=== PATIENT | female | born 1985 | race Two or more races ===

== ENCOUNTER → 2024-03-20 | Outpatient (CLI) | payer BC, SELFPAY ==
--- NOTE | 2024-03-20 10:14 | XR_ITS ---
Examination: Foot bilateral, 6 views Technique: AP, oblique, lateral views each foot total 6 views Date and time of exam: March 20, 2024 1027 hours INDICATIONS: Bilateral foot pain months FINDINGS: Mild osteopenia Mild to moderate bilateral hallux valgus bunion deformities Mild bilateral narrowing first metatarsophalangeal joints No fracture or dislocation involving either foot No cortical bone erosions IMPRESSION: Mild to moderate bilateral hallux valgus bunion deformities Mild bilateral narrowing first metatarsophalangeal joints
[2024-03-20 11:22] LABS: Basophils % (Auto) 0 % (0-2.5); Eosinophils # (Auto) 0.2 Thou/mm3 (0.0-0.5); Eosinophils % (Auto) 4 % (0-10); Hemoglobin 14.6 g/dL (12.0-16.0); Immature Granulocytes % (Auto) 0 % (0-0); Immature Granulocytes Auto 0.01 Thou/mm3 (0.00-0.00); Lymphocytes % (Auto) 35 % (10-50); Mean Corpuscular HGB Conc 33.2 g/dl (31.0-37.0); Mean Corpuscular Hemoglobin 28.6 pg (25.0-35.0); Mean Corpuscular Volume 86 fL (80-100); Monocytes # (Auto) 0.4 Thou/mm3 (0.0-0.8); Monocytes % (Auto) 7 % (0-12); Neutrophils # (Auto) 3.1 Thou/mm3 (1.8-7.7); Neutrophils % (Auto) 54 % (37-80); Nucleated Red Blood Cell % 0 /100 WBC (0); Platelet Count 280 Thou/mm3 (140-440); RDW Standard Deviation 41.2 fL (36.4-46.3); White Blood Count 5.7 Thou/mm3 (3.6-11.0)
[2024-03-20 11:36] LABS: Glucose Estimated Average 105 mg/dL (80-131); Hemoglobin A1C 5.3 % Hgb (4.8-6.0)
[2024-03-20 11:44] LABS: Collection Type, Urine Clean Catch
[2024-03-20 11:49] LABS: Alanine Aminotransferase 18 U/L (10-49); Albumin, Serum 4.6 gm/dL (3.5-5.0); Albumin/Globulin Ratio 2.1 (1.2-2.2); Alkaline Phosphatase 65 U/L (46-116); Anion Gap 6 (7-16); Aspartate Amino Transferase 13 U/L (0-34); BUN/Creatinine Ratio 19 Ratio (12-20); Bilirubin,Total 1.2 mg/dL (0.3-1.2); Blood Urea Nitrogen 13 mg/dL (9-23); Calcium 9.7 mg/dL (8.3-10.6); Calcium (Corrected) 9.7 mg/dL (8.5-10.1); Carbon Dioxide 28.7 mMol/L (20.0-31.0); Cardiac Risk Estimate 3.9 RATIO (3.7-5.6); Chloride 104 mMol/L (98-107); Cholesterol 149 mg/dL (132-200); Creatinine (Component) 0.7 mg/dL (0.6-1.3); Globulin 2.2 gm/dL (2.3-3.5); Glucose 86 mg/dL (74-106); HDL Cholesterol 38 mg/dL (40-60); LDL Cholesterol,Calculated 83 mg/dL (0-130); Osmolality,Calculated 276 (275-295); Potassium 4.3 mMol/L (3.4-5.1); Sodium 139 mMol/L (136-145); Thyroid Stimulating Hormone 0.65 uIU/mL (0.55-4.78); Total Protein 6.8 gm/dL (5.7-8.2); Triglycerides 138 mg/dL (30-150); eGFR > 60 See Note
[2024-03-20 11:55] LABS: Vitamin D 25 Hydroxy Total 23.9 ng/mL (7.3-40.2)
[2024-03-20 12:09] LABS: Bilirubin,Urine Negative (Negative); Blood,Urine Negative (Negative); Clarity,Urine Hazy (Clear/Hazy); Color,Urine Yellow (Lt Yel-Yel); Culture Indicated,Urine Not Indicated; Glucose, Urine Negative (Negative); Ketones,Urine Negative (Negative); Leukocyte Esterase,Urine Negative (Negative); Nitrite,Urine Negative (Negative); PH,Urine 7.5 (5.0-7.0); Protein,Urine 1+ (Neg - Trace); RBC,Urine 8 /hpf (0-3); Specific Gravity,Urine 1.027 (1.001-1.035); Squamous Epithelial Cell,Urine 67 /hpf (0-5); Urobilinogen,Urine Negative mg/dL (0.0-1.0); WBC,Urine 2 /hpf (0-5)
[2024-03-20 12:22] LABS: Creatinine MALB Rnd Ur 232 mg/dL (30-125); Microalbumin Creat Ratio 2 mg/gCrea (<30); Microalbumin, Random Urine 4 mg/L (0-300)
== END | disposition home or self-care (01) ==
LOC: COPL 10:03
PROVIDERS: PCP Family Medicine; Referring Provider Family Medicine; Visit Provider Radiology Diagnostic Radiology
DX: M20.12 Hallux valgus (acquired), left foot (principal); M20.11 Hallux valgus (acquired), right foot; M21.612 Bunion of left foot; M21.611 Bunion of right foot; M25.872 Other specified joint disorders, left ankle and foot; M25.871 Other specified joint disorders, right ankle and foot; Z00.00 Encounter for general adult medical examination without abnormal findings; Z13.0 Encounter for screening for diseases of the blood and blood-forming organs and certain disorders involving the immune mechanism; Z13.29 Encounter for screening for other suspected endocrine disorder; Z13.21 Encounter for screening for nutritional disorder; Z13.220 Encounter for screening for lipoid disorders
CPT/HCPCS: 36415; 73630; 80053; 80061; 81001; 82043; 82306; 82570; 83036; 84443; 85025

== ENCOUNTER → 2024-04-16 | Outpatient (CLI) | payer BC, SELFPAY ==
--- NOTE | 2024-04-16 10:30 | XR_ITS ---
Examination: Screening digital mammography, bilateral Computer aided detection 3-D breast Tomosynthesis, bilateral Date and time of exam: April 16, 2024 1025 hrs. Compared to mammograms dating to 11/25/2018 Indication: Screening Technique: Nonmagnified MLO, CC views of the breasts to been obtained, reconstructed from 3-D Tomosynthesis images. R2 computer aided detection program utilized for evaluation of suspicious masses and/or abnormal calcifications. 3-D Tomosynthesis images obtained. Findings: The breasts are heterogeneously dense, which may obscure small masses 2 focal asymmetries upper outer left breast, each 16 mm Impression: BI-RADS Category 0: Incomplete: Need additional imaging evaluation 2 focal asymmetries upper outer left breast, recommend follow-up spot tomographic views upper outer quadrant left breast, left breast sonography to complete the workup
== END | disposition home or self-care (01) ==
PROVIDERS: PCP Family Medicine; Referring Provider Family Medicine; Visit Provider Family Medicine
DX: Z12.31 Encounter for screening mammogram for malignant neoplasm of breast (principal); N64.89 Other specified disorders of breast
CPT/HCPCS: 77063; 77067

== ENCOUNTER → 2024-05-20 | Outpatient (CLI) | payer BC, SELFPAY ==
--- NOTE | 2024-05-20 14:00 | XR_ITS ---
Examination: Breast ultrasound, unilateral, left complete Date and time of exam: May 20, 2024 1325 hours INDICATIONS: Mammogram April 16, 2024 2 focal asymmetries upper outer left breast, family history breast cancer Technique: Real-time phelps scale ultrasonographic imaging performed left breast including all 4 quadrants as well as nipple retroareolar and axillary region. Findings: 1:00 cyst 8 x 8 mm No solid nodules IMPRESSION: BI-RADS Category 2: Benign findings
--- NOTE | 2024-05-20 14:45 | XR_ITS ---
Examination: Diagnostic digital mammography, unilateral, left Computer aided detection 3-D breast Tomosynthesis, unilateral Date and time of exam: May 20, 2024 at 1410 hours INDICATIONS: Mammogram April 16, 2024 2 focal asymmetries upper outer left breast Technique: Nonmagnified MLO, CC views of the left breast have been obtained, reconstructed from 3-D Tomosynthesis images. R2 computer aided detection program utilized for evaluation of suspicious masses and/or abnormal calcifications. 3-D Tomosynthesis images obtained. Findings: The breast is heterogeneously dense, which may obscure small masses Left breast sonogram today demonstrates no solid nodules Focal asymmetry does remain outer left breast on the spot compression left CC view Impression: BI-RADS category 3: Probably benign findings Recommend 1 additional 6 month left mammogram follow-up
== END | disposition home or self-care (01) ==
PROVIDERS: PCP Family Medicine; Referring Provider Family Medicine; Visit Provider Family Medicine
DX: R92.332 Mammographic heterogeneous density, left breast (principal); Z80.3 Family history of malignant neoplasm of breast
CPT/HCPCS: 76641; 77061; 77065; G0279

== ENCOUNTER → 2024-08-03 | Outpatient (CLI) | payer BC, SELFPAY ==
--- NOTE | 2024-08-03 15:45 | XR_ITS ---
Examination: PA lateral chest 2 views TECHNIQUE: Upright PA and lateral chest 2 views Date and time: August 03, 2024 1606 hours Comparison October 05, 2022 INDICATIONS: Shortness of breath coughing beginning 2 days ago. FINDINGS: Mild pneumonia in the lingular segment Mild prominence left ventricle No pulmonary edema Intact osseous structures IMPRESSION: Mild pneumonia lingular segment left upper lobe
--- NOTE | 2024-08-03 16:25 | EKG_ITS ---
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
== END | disposition home or self-care (01) ==
PROVIDERS: PCP Family Medicine; Referring Provider Family Medicine; Visit Provider Nurse Practitioner Family
DX: J18.9 Pneumonia, unspecified organism (principal); R07.9 Chest pain, unspecified; R00.2 Palpitations
CPT/HCPCS: 71046; 93005

== ENCOUNTER 2024-08-10 00:30 | Emergency (ER) | payer BC, SELFPAY ==
[2024-08-10 00:33] VITALS: BMI 39.4
[2024-08-10 00:49] VITALS: BP 112/78; PULSE 100; RESP 20; TEMP 37.5; O2SAT 98
--- NOTE | 2024-08-10 02:13 | XR_ITS ---
Examination: PA lateral chest 2 views TECHNIQUE: Upright PA lateral chest 2 views Date and time: August 10, 2024 0221 hours INDICATIONS: Nausea vomiting fever coughing today FINDINGS: Mild bibasilar pneumonia. Normal heart size The osseous structures are intact IMPRESSION: Mild bibasilar pneumonia
--- NOTE | 2024-08-10 02:21 | EDNOTE_ITS ---
Nausea/Vomit./Diarrhea-RME/HPI General Chief complaint: Nausea/Vomiting/Diarrhea Stated complaint: VOMITING DIARRHEA AND COLD SWEATS Time Seen by Provider: 08/10/24 00:41 Arrival date/time: 08/10/24 00:30 RME / HPI RME / HPI Narrative: 38-year-old female presents to the ED with a complaint of nausea, vomiting, watery diarrhea since 10 PM, as well as ongoing cough, fever. Patient states she was seen by her primary care physician last Saturday and diagnosed with pneumonia via chest x-ray. She was given an injection of Rocephin and prescribed azithromycin which she has completed. She indicates she is feeling no better. She was not tested for COVID or influenza. She also states her Sciatica is acting up. Related Data Previous Rx's ?Medication ?Instructions ?Recorded ondansetron 4 mg disintegrating 4 mg PO Q6H PRN nausea and 08/10/24 tablet vomiting #10 tabs Allergies Allergy/AdvReac Type Severity Reaction Status Date / Time No Known Allergies Allergy Verified 08/10/24 00:36 Review of Systems Review of Systems Systems Reviewed: All systems reviewed, normal except as documented Past Medical History Past Medical History NEUROLOGIC: Positive Neurological Disorders and Migraine (NO MEDS); Negative Seizures CARDIAC: Positive Cardiac Disorders and Hypertension (CHRONIC HTN WITH ); Negative Congestive Heart Failure RESPIRATORY: Negative Chronic Obstructive Pulmonary Disease (COPD) GASTROINTESTINAL: Negative Gastrointestinal Disorders or Hepatitis GENITOURINARY: Negative Genitourinary Disorders or Renal Disease MUSCULOSKELETAL: Negative Musculoskeletal Disorders ENDOCRINE: Negative Endocrine Disorders, Diabetes Mellitus Type 1 or Diabetes Mellitus Type 2 HEMATOLOGIC: Negative Blood Disorders OTHER HISTORY: Positive Chicken Pox; Negative Autoimmune Disease, Blood Transfusions, Anesthesia Reactions, Human Immunodeficiency Virus (HIV), Measles, Mumps, Rubella (Tajik Measles), Pertussis or Clostridium Difficile Family History FAMILY HISTORY: Positive Family Cancer (CERVICAL,BREAST) and Family Surgery; Negative Family Psychiatric Problems, Family Respiratory Disorders, Family Cardiac Disorders, Family Gastrointestinal Problems or Family Anesthesia Reaction Surgical History SURGICAL: Positive Section (X1) Social History SMOKING STATUS: Never smoker ED Exam Narrative Physical exam: Alert and oriented 38-year-old female, sitting in wheelchair, mild acute distress. No respiratory distress noted. Vital signs blood pressure 112/78, pulse 100, respirations 20 and nonlabored, temperature is 99. 5 degrees, O2 sat is 98% on room air. Lungs are diminished at the bases, regular rate and rhythm without murmurs, abdomen is soft with mild generalized tenderness. Course Orders Category Date Time Status Bedside COVID-19 Antigen Test NOW Care 08/10/24 02:13 Active Bedside Influenza A&B Antigen Test NOW Care 08/10/24 02:14 Completed IV [Insert IV] NOW Care 08/10/24 02:13 Active NPO STAT Care 08/10/24 02:13 Active XR chest 2V Stat Exams 08/10/24 02:13 Taken Amylase Stat Lab 08/10/24 03:10 Completed CBC Stat Lab 08/10/24 03:10 Completed Comprehensive Metabolic Panel Stat Lab 08/10/24 03:10 Completed HCG Qualitative,Urine Stat Lab 08/10/24 04:08 Completed Lipase Stat Lab 08/10/24 03:10 Completed Strep A Rapid Stat Lab 08/10/24 02:56 Completed Urinalysis Stat Lab 08/10/24 04:08 Completed Urine Culture Stat Lab 08/10/24 04:08 Received HYDROcodone/APAP 10/325 [[place] 10/325] Med 08/10/24 02:39 Discontinued 1 tab PO X1 ONE Ketorolac Inj [Toradol Inj] Med 08/10/24 02:15 Discontinued 30 mg IM X1 ONE Ondansetron Inj [Zofran Inj] Med 08/10/24 02:13 Discontinued 4 mg IVP X1 ONE Sodium Chloride 0.9% 1000 ml [Ns] 1,000 ml Med 08/10/24 02:13 Discontinued IV 999 mls/hr Vital Signs Vital signs: Vital Signs Temperature 99.5 F 08/10/24 00:49 Pulse Rate 100 08/10/24 00:49 Respiratory Rate 20 08/10/24 00:49 Blood Pressure 112/78 08/10/24 00:49 Pulse Oximetry (%) 98 08/10/24 00:49 Oxygen Delivery Method Room Air 08/10/24 00:49 Nausea/Vomiting/Diarrhea Medications / Prescriptions Medication administrations:: Medication Administration History Discontinued Medications Hydrocodone Bitart/Acetaminophen (Hydrocodone/Apap 10/325 Tab) 1 tab PO X1 ONE Stop: 08/10/24 02:40 Last Admin: 08/10/24 02:50 Dose: 1 tab Documented By: ARISTIDES Sodium Chloride (Ns) 1,000 mls @ 999 mls/hr IV .Q1H1M ONE Stop: 08/10/24 03:13 Last Infusion: 08/10/24 04:23 Dose: Infused Documented By: Admin: 08/10/24 02:51 Dose: 999 mls/hr Documented By: DT Ketorolac Tromethamine (Ketorolac Inj 60 Mg/2 Ml Vial) 30 mg IM X1 ONE Stop: 08/10/24 02:16 Last Admin: 08/10/24 02:47 Dose: 30 mg Documented By: DT Ondansetron HCl (Ondansetron Inj 2 Mg/Ml Inj 2 Ml) 4 mg IVP X1 ONE; Protocol Stop: 08/10/24 02:14 Last Admin: 08/10/24 02:49 Dose: 4 mg Documented By: ARISTIDES Discharge Plan Plan Patient Disposition: HOME (Self Care) Discharge Disposition comment: Stable Prescriptions/Referrals Prescriptions/Med Rec: New ondansetron 4 mg tablet,disintegrating 4 mg PO Q6H PRN (Reason: nausea and vomiting) Qty: 10 0RF Referrals: Mac (PCP),MD Jerald [Primary Care Provider] - In 1 week Problem List Clinical Impression: Nausea, vomiting and diarrhea Patient/Caregiver Discharge Instructions Education Materials: ED Vomiting and Diarrhea ... Additional Instructions: Chest x-ray is negative for pneumonia, COVID and influenza AMB as well as rapid strep are negative. Labs reveal no infection in the blood, chemistry panel does not reveal any dehydration. Kidney function liver functions are normal. Amylase and lipase are negative indicating no issue with your pancreas or gallbladder. Your urinalysis is negative for infection. Contact your doctors office when they open for a follow-up appointment. Use the Zofran to help control the nausea and vomiting. Return to the ER for any new or worsening symptoms. Print Language: Japanese Stand Alone Forms: Maren Award Info., Patient Portal Info Letter PA/CUSTOMS ENTRY WRITER Supervising Physician PA/CUSTOMS ENTRY WRITER Supervising Physician: Dr. Potter
[2024-08-10] MEDS: KETOROLAC INJ 60 MG/2 ML VIAL 30 MG IM (02:47)
[2024-08-10] MEDS: ONDANSETRON INJ 2 MG/ML INJ 2 ML 4 MG IVP (02:49)
[2024-08-10] MEDS: HYDROcodone/APAP 10/325 TAB PO (02:50)
[2024-08-10] MEDS: SODIUM CHLORIDE 0.9% 1000 ML 1,000 ML 999 ML IV (02:51)
[2024-08-10 03:35] LABS: Alanine Aminotransferase 16 U/L (10-49); Albumin/Globulin Ratio 1.8 (1.2-2.2); Alkaline Phosphatase 58 U/L (46-116); Amylase 54 U/L (30-118); Anion Gap 10 (7-16); BUN/Creatinine Ratio 28 Ratio (12-20); Bilirubin,Total 1.1 mg/dL (0.3-1.2); Blood Urea Nitrogen 17 mg/dL (9-23); Calcium 8.5 mg/dL (8.3-10.6); Calcium (Corrected) 8.5 mg/dL (8.5-10.1); Chloride 105 mMol/L (98-107); Creatinine (Component) 0.6 mg/dL (0.6-1.3); Estimated Creatinine Clearance 146.7 mL/min (>60); Globulin 2.2 gm/dL (2.3-3.5); Glucose 115 mg/dL (74-106); Lipase 29 U/L (12-53); Osmolality,Calculated 280 (275-295); Potassium 4.2 mMol/L (3.4-5.1); Sodium 139 mMol/L (136-145); Total Protein 6.2 gm/dL (5.7-8.2); eGFR > 60 See Note
[2024-08-10 03:36] LABS: Basophils % (Auto) 0 % (0-2.5); Eosinophils % (Auto) 0 % (0-10); Hemoglobin 13.9 g/dL (12.0-16.0); Immature Granulocytes % (Auto) 1 % (0-0); Immature Granulocytes Auto 0.06 Thou/mm3 (0.00-0.00); Lymphocytes # (Auto) 0.6 Thou/mm3 (1.0-4.8); Lymphocytes % (Auto) 7 % (10-50); Mean Corpuscular HGB Conc 34.8 g/dl (31.0-37.0); Mean Corpuscular Hemoglobin 28.8 pg (25.0-35.0); Mean Corpuscular Volume 83 fL (80-100); Monocytes # (Auto) 0.3 Thou/mm3 (0.0-0.8); Monocytes % (Auto) 4 % (0-12); Neutrophils # (Auto) 7.9 Thou/mm3 (1.8-7.7); Neutrophils % (Auto) 88 % (37-80); Nucleated Red Blood Cell % 0 /100 WBC (0); Platelet Count 248 Thou/mm3 (140-440); RDW Standard Deviation 39.8 fL (36.4-46.3); Red Blood Count 4.83 Miln/mm3 (4.00-5.20)
[2024-08-10 03:44] LABS: Strep A Rapid Negative (Negative)
[2024-08-10 04:13] LABS: Collection Type, Urine Clean Catch
[2024-08-10 04:20] LABS: Amorphous Crystals,Urine Present (Absent); Bacteria,Urine Rare; Bilirubin,Urine Negative (Negative); Blood,Urine Negative (Negative); Clarity,Urine Turbid (Clear/Hazy); Color,Urine Yellow (Lt Yel-Yel); Glucose, Urine Negative (Negative); Ketones,Urine Negative (Negative); Leukocyte Esterase,Urine Negative (Negative); Nitrite,Urine Negative (Negative); PH,Urine 7.5 (5.0-7.0); Protein,Urine 1+ (Neg - Trace); RBC,Urine 13 /hpf (0-3); Specific Gravity,Urine 1.037 (1.001-1.035); Squamous Epithelial Cell,Urine 6 /hpf (0-5); WBC,Urine 1 /hpf (0-5)
[2024-08-10 04:21] LABS: HCG Qualitative,Urine Negative
[2024-08-10 04:31] VITALS: BP 135/85; PULSE 85; RESP 16; TEMP 37; O2SAT 99
[2024-08-10] MEDS: HYDROcodone/APAP 7.5/325 TABLET 1 TAB PO (06:32)
[2024-08-10 06:39] VITALS: BP 135/85; PULSE 75; RESP 14; TEMP 37; O2SAT 99
== END 2024-08-10 06:43 | disposition home or self-care (01) ==
PROVIDERS: Physician Assistant; Emergency Provider Emergency Medicine; PCP Family Medicine
DX: R11.2 Nausea with vomiting, unspecified (principal); R19.7 Diarrhea, unspecified; R50.9 Fever, unspecified; R05.9 Cough, unspecified
CPT/HCPCS: 36415; 71046; 80053; 81001; 81025; 82150; 83690; 85025; 87077; 87086; 87186; 87400; 87651; 87811; 96361; 96372; 96374; 99284; J1885; J2405; J7030; A9270

== ENCOUNTER → 2024-10-05 | Outpatient (CLI) | payer BC, SELFPAY ==
--- NOTE | 2024-10-05 | XR_ITS ---
Examination: Lumbar spine, 5 views Technique: Lumbar spine AP, lateral, coned lateral lower lumbar spine, bilateral obliques 5 views Exam date and time: October 05, 2024 1658 hours INDICATIONS: Low back pain radiating down the right leg beginning 2 weeks ago. FINDINGS: Satisfactory alignment lumbar vertebral bodies The lateral film is severely obliqued No lumbar fracture Mild lumbar spondylosis Diffuse mild to moderate lumbar degenerative disc disease most prominent at L5-S1 IMPRESSION: Mild to moderate lumbar degenerative disc disease most prominent at L5-S1
--- NOTE | 2024-10-05 16:29 | XR_ITS ---
EXAMINATION: Cervical spine, 5 views Technique: Cervical spine AP, AP odontoid, lateral, bilateral obliques, 5 views Exam date and time: October 05, 2024 1654 hours INDICATIONS: Neck pain beginning 2 years ago, with numbness in the right arm FINDINGS: Straightening normal cervical lordosis. No cervical fracture. Intact odontoid Moderate degenerative disc disease C5-C6 with mild to moderate bilateral neural foraminal stenosis, greater on the right IMPRESSION: Moderate degenerative disc disease C5-C6 with mild to moderate bilateral neural foraminal stenosis
[2024-10-05 19:25] LABS: Vitamin B12 > 2000 pg/mL (211-911)
== END | disposition home or self-care (01) ==
LOC: CDIM 16:14 → COPL 16:31
PROVIDERS: PCP Family Medicine; Referring Provider Family Medicine; Visit Provider Radiology Diagnostic Radiology
DX: M50.322 Other cervical disc degeneration at C5-C6 level (principal); M48.02 Spinal stenosis, cervical region; M51.369 Other intervertebral disc degeneration, lumbar region without mention of lumbar back pain or lower extremity pain; R53.83 Other fatigue
CPT/HCPCS: 36415; 72050; 72110; 82607

== ENCOUNTER → 2024-11-09 | Outpatient (CLI) | payer BC, SELFPAY ==
--- NOTE | 2024-11-09 16:13 | XR_ITS ---
Examination: Sinus series 3 views Technique: Dottie Valladares lateral sinus series 3 views Date and time: November 09, 2024, 1625 hrs. Indications: Acute facial pain sinus pressure and pain 2 days. Findings: Mild opacity in the frontal ethmoid air cells Mucosal thickening up to 4 mm in the maxillary antra No fluid levels No cortical bone destruction Moderate hypertrophy inferior nasal turbinates Impression: Chronic frontal, ethmoid, maxillary antral sinusitis
== END | disposition home or self-care (01) ==
LOC: CDIM 15:48
PROVIDERS: PCP Family Medicine; Referring Provider Family Medicine; Visit Provider Family Medicine
DX: J32.8 Other chronic sinusitis (principal)
CPT/HCPCS: 70220

== ENCOUNTER → 2024-12-21 | Outpatient (CLI) | payer BC, SELFPAY ==
--- NOTE | 2024-12-21 15:30 | XR_ITS ---
Examination: Diagnostic digital mammography, unilateral, left Computer aided detection 3-D breast Tomosynthesis, unilateral Date and time of exam: December 21, 2024, 1524 hours INDICATIONS: Mammogram April 16, 2024 2 focal asymmetries outer left breast Technique: Nonmagnified MLO, CC views of the left breast have been obtained, reconstructed from 3-D Tomosynthesis images. R2 computer aided detection program utilized for evaluation of suspicious masses and/or abnormal calcifications. 3-D Tomosynthesis images obtained. Findings: The breast is heterogeneously dense, which may obscure small masses Stable focal asymmetries outer left breast Impression: BI-RADS category 2: Benign findings Return to yearly follow-up mammography
== END | disposition home or self-care (01) ==
LOC: CDIM 14:46
PROVIDERS: Referring Provider Family Medicine; Visit Provider Family Medicine
DX: R92.322 Mammographic fibroglandular density, left breast (principal)
CPT/HCPCS: 77061; 77065; G0279

== ENCOUNTER 2025-01-10 02:30 | Emergency (ER) | payer BC, SELFPAY ==
[2025-01-10 02:33] VITALS: BP 122/87; PULSE 88; RESP 18; TEMP 36.7; O2SAT 95; BMI 38.6
--- NOTE | 2025-01-10 03:00 | EKG_ITS ---
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: : 1985 Requested By: Leroy Mclean Order Number: [id number] Reading MD: Leroy Mclean Measurements Intervals [place] Rate: 88 P: 19 MA: 185 QRS: 24 QRSD: 94 T: 33 QT: 348 QTc: 422 Interpretive Statements SINUS RHYTHM WITH OCCASIONAL SUPRAVENTRICULAR PREMATURE COMPLEXES INCOMPLETE RIGHT BUNDLE BRANCH BLOCK [90+ ms QRS DURATION, TERMINAL R IN V1/V2, 40+ ms S IN I/aVL/V4/V5/V6] POSSIBLE ANTERIOR MYOCARDIAL INFARCTION , PROBABLY OLD [30 ms Q WAVE IN V3/V4, OR R < 0.2 mV IN V4] Compared to ECG 08/03/2024 16:29:00 Incomplete right bundle-branch block now present Myocardial infarct finding now present Sinus tachycardia no longer present /store/S0/[id number]/[id number].pdf
--- NOTE | 2025-01-10 03:22 | XR_ITS ---
EXAMINATION: PA chest single view TECHNIQUE: Upright PA chest single view Date and time: February 09, 2025, 0359 hours, comparison August 10, 2024 INDICATIONS: Upper chest pain beginning 1 hour ago FINDINGS: Normal heart size The lungs are clear. Osseous structures are intact IMPRESSION: No active disease
--- NOTE | 2025-01-10 03:22 | XR_ITS ---
Examination: Duplex scan of the upper extremity, unilateral right complete Date and time of exam: January 10, 2025, 0404 hours INDICATIONS: Right arm and chest pain beginning last night Technique: Duplex scan of the extremity veins using B-mode/grayscale imaging and Doppler spectral analysis and color flow Attention is directed to internal echogenicity, compression and augmentation involving these veins, color flow assessment, spectral analysis Findings: Major deep venous structures in the extremity demonstrate normal course and caliber. There is no evidence of deep vein thrombosis. Normal color flow and spectral analysis Impression: Negative for DVT..
--- NOTE | 2025-01-10 03:22 | XR_ITS ---
EXAMINATION: PA chest single view TECHNIQUE: Upright PA chest single view Date and time: January 10, 2025, 0424 hours INDICATIONS: Chest pain today. FINDINGS: Normal heart size Lungs are clear. The Dave structures are intact IMPRESSION: No active disease
--- NOTE | 2025-01-10 03:22 | PD.EDRME ---
Rapid Medical Screening Exam RME Arrival date/time: 01/10/25 02:30 This is a case of 39-year-old female who have history of hypertension came into the emergency room due to on and off chest pain for 2 days associated with right arm pain worsening of the symptoms this patient decided to sought consult here in the emergency room Chief Complaint: Extremity Injury, Lower Time Seen by Provider: 01/10/25 03:21 Vital signs: Vital Signs Temperature 98.0 F 01/10/25 02:33 Pulse Rate 88 01/10/25 02:33 Respiratory Rate 18 01/10/25 02:33 Blood Pressure 122/87 H 01/10/25 02:33 Pulse Oximetry (%) 95 01/10/25 02:33 Oxygen Delivery Method Room Air 01/10/25 02:33 Exam: Normal rate regular rhythm no murmur clear breath sound no rales no wheezing no crackles no rhonchi right arm pain normal exam Clinical Impression: Right arm pain chest pain
[2025-01-10 03:50] LABS: Basophils # (Auto) 0.0 Thou/mm3 (0.0-0.2); Basophils % (Auto) 0 % (0-2.5); Eosinophils # (Auto) 0.3 Thou/mm3 (0.0-0.5); Eosinophils % (Auto) 3 % (0-10); Hematocrit 42.2 % (36.0-46.0); Hemoglobin 14.0 g/dL (12.0-16.0); Immature Granulocytes Auto 0.03 Thou/mm3 (0.00-0.00); Lymphocytes # (Auto) 2.6 Thou/mm3 (1.0-4.8); Lymphocytes % (Auto) 27 % (10-50); Mean Corpuscular HGB Conc 33.2 g/dl (31.0-37.0); Mean Corpuscular Hemoglobin 29.0 pg (25.0-35.0); Mean Corpuscular Volume 88 fL (80-100); Monocytes # (Auto) 0.7 Thou/mm3 (0.0-0.8); Monocytes % (Auto) 7 % (0-12); Neutrophils # (Auto) 6.1 Thou/mm3 (1.8-7.7); Neutrophils % (Auto) 63 % (37-80); Nucleated Red Blood Cell # 0.00 Thou/mm3 (0.00-0.00); Nucleated Red Blood Cell % 0 /100 WBC (0); Platelet Count 236 Thou/mm3 (140-440); RDW Standard Deviation 42.5 fL (36.4-46.3); Red Blood Count 4.82 Miln/mm3 (4.00-5.20); White Blood Count 9.8 Thou/mm3 (3.6-11.0)
[2025-01-10 04:03] LABS: D-Dimer < 250 ng/mL (<600)
[2025-01-10 04:09] LABS: B-Type Natriuretic Peptide < 20 pg/mL (0-100)
[2025-01-10 04:13] LABS: Collection Type, Urine Clean Catch
[2025-01-10 04:14] LABS: Alanine Aminotransferase 11 U/L (10-49); Albumin, Serum 4.4 gm/dL (3.5-5.0); Albumin/Globulin Ratio 2.3 (1.2-2.2); Alkaline Phosphatase 59 U/L (46-116); Anion Gap 8 (7-16); Aspartate Amino Transferase 13 U/L (0-34); BUN/Creatinine Ratio 17 Ratio (12-20); Bilirubin,Total 0.5 mg/dL (0.3-1.2); Blood Urea Nitrogen 12 mg/dL (9-23); Calcium 9.0 mg/dL (8.3-10.6); Calcium (Corrected) 9.0 mg/dL (8.5-10.1); Carbon Dioxide 24.4 mMol/L (20.0-31.0); Chloride 109 mMol/L (98-107); Creatinine (Component) 0.7 mg/dL (0.6-1.3); Estimated Creatinine Clearance 123.0 mL/min (>60); Globulin 1.9 gm/dL (2.3-3.5); Glucose 98 mg/dL (74-106); Osmolality,Calculated 280 (275-295); Potassium 4.3 mMol/L (3.4-5.1); Sodium 141 mMol/L (136-145); Total Protein 6.3 gm/dL (5.7-8.2); Troponin I < 0.002 ng/mL (0.0-0.045); eGFR > 60 See Note
[2025-01-10 04:16] LABS: HCG Qualitative,Urine Negative
[2025-01-10 04:17] LABS: Amorphous Crystals,Urine Present (Absent); Bacteria,Urine Rare; Bilirubin,Urine Negative (Negative); Blood,Urine 1+ (Negative); Clarity,Urine Clear (Clear/Hazy); Color,Urine Yellow (Lt Yel-Yel); Glucose, Urine Negative (Negative); Ketones,Urine Negative (Negative); Leukocyte Esterase,Urine Negative (Negative); Nitrite,Urine Negative (Negative); PH,Urine 5.5 (5.0-7.0); Protein,Urine Trace (Neg - Trace); RBC,Urine 7 /hpf (0-3); Specific Gravity,Urine 1.033 (1.001-1.035); Squamous Epithelial Cell,Urine 15 /hpf (0-5); Urobilinogen,Urine Negative mg/dL (0.0-1.0); WBC,Urine < 1 /hpf (0-5)
[2025-01-10 07:48] VITALS: BP 132/89; PULSE 74; RESP 16; TEMP 36.9; O2SAT 99
--- NOTE | 2025-01-10 08:43 | EDNOTE_ITS ---
<Statement entered by Carrie Frias MD - 01/10/25 16:33> I, Carrie Frias MD, have reviewed the history, exam, and assessment of the patient. I have evaluated the patient independently and agree with the plan of care documented by [ ]. All diagnostic studies were reviewed and discussed. I confirm the diagnosis as documented by the Resident. I was present during the Medical Decision Making for this patient. The patient's plan of care was created between myself and the Resident and consistent with our discussion of the patient's case. ED Chest Pain RME/HPI General Chief Complaint: Extremity Injury, Lower Stated Complaint: PAIN R ARM CHEST PAIN Time Seen by Provider: 01/10/25 03:21 Arrival date/time: 01/10/25 02:30 RME / HPI RME / HPI narrative: 01/10/25 02:30 Patient is a 39-year-old female with a past medical history of hypertension who presented to the emergency room via private vehicle secondary to chest pain woken her up from sleep. Pain originates at epigastric region and radiates to the right chest. Patient has been constant over the past several hours since 2 AM in the morning. Pain does not radiate to the jaw. No history of cardiac disease. Pain described as sharp. Pain not made worse with exertion. Not made worse with inspiration. Not reproducible to sternal rub. CBC CMP UA venous ultrasound of right arm chest x-ray EKG Exam: Normal rate regular rhythm no murmur clear breath sound no rales no wheezing no crackles no rhonchi right arm pain normal exam Impression: Right arm pain chest pain Related Data Previous Rx's ?Medication ?Instructions ?Recorded ondansetron 4 mg disintegrating 4 mg PO Q6H PRN nausea and 08/10/24 tablet vomiting #10 tabs famotidine 10 mg tablet 10 mg PO BID PRN heartburn 7 weeks 01/10/25 #98 tabs Allergies Allergy/AdvReac Type Severity Reaction Status Date / Time No Known Allergies Allergy Verified 01/10/25 02:39 Review of Systems Review of Systems Narrative Review of Systems: General appearance: NO weight change, NO fatigue, NO weakness, NO fever, NO chills, NO night sweats, No cough Skin: NO rash, NO itching, NO sores, NO moles HEENT: NO Trauma, NO nausea, NO vomiting, NO visual changes, NO blurry vision, NO double vision, NO tinnitus, NO vertigo, NO ear discharge, NO rhinorrhea, NO stuffiness, NO sneezing, NO allergy, NO epistaxis. NO Hoarseness, NO sore throat, NO swollen neck. Cardiac: yes, chest pain. NO Palpitations, NO dyspnea on exertion, NO orthopnea, NO paroxysmal nocturnal dyspnea, NO edema Respiratory: NO Shortness of Breath, NO Wheezing, NO Cough, NO Sputum, NO hemoptysis GI:NO appetite, NO nausea, NO vomiting, NO dysphagia, NO changes in bowel frequency, NO stool color, NO diarrhea, NO constipation, NO hemetemesis, NO hemorrhoids, NO melena, NO hematechezia, NO abdominal pain, NO jaundice Renal: NO frequency, NO hesitancy, NO urgency, NO hematuria, NO nocturia, NO in continence MSK: NO muscle weakness, NO gout, NO arthritis, NO muscle stiffness Neuro: NO headaches, NO tremors, NO weakness, NO paralysis, NO seizures, NO loss of consciousness, NO numbness. Hem: NO anemia, NO easy bruising/bleeding, NO petechiae, NO purpura Endo: NO heat/cold intolerance, NO excessive sweating, NO polyuria, NO polydipsia, NO polyphagia, NO thyroid problems, NO diabetes Pysch: NO mood, NO anxiety, NO depression ED Exam Narrative Physical exam: General Appearance: Alert & Oriented X3, well-nourished female who is lying in bed in no acute distress HEENT: Skull symmetrical and atraumatic. Conjunctivae pin and moist. Pupils equal, round, reactive to light and accommodation (PERRL). External ear without lesion or discharge. Straight, nares patient, mucosa pink, no discharge. Cardio: Normal Rate and Rhythm with S1 and S2 heart sounds. No murmurs or extra heart sounds auscultated. No bruits on carotid auscultation. No peripheral edema or cyanosis. Lungs: Symmetric with good expansion. Chest and back non-tender. Breath sounds vesicular without crackles, wheezing or rhonchi Abdomen: Non-tender, Non-distended, Normal Reactive Bowel Sounds, negative romero sign Neuro: Alert, cooperative, oriented to person, place, and time. Speech clear. CN grossly intact. Upper motor strength 5/5 and Lower motor strength 5/5. Sensation intact. Course Quality Measures none Orders Category Date Time Status EKG (ED ONLY) *Do not use* NOW Care 01/10/25 03:00 Completed EKG (ED Only) Stat Exams 01/10/25 03:00 Draft US venous doppler UE RT Stat Exams 01/10/25 03:22 Completed XR chest 1V Urgent Exams 01/10/25 03:22 Taken BNP [B-Type Natriuretic Peptide] Stat Lab 01/10/25 03:28 Completed CBC Stat Lab 01/10/25 03:28 Completed Comprehensive Metabolic Panel Stat Lab 01/10/25 03:28 Completed D-Dimer Stat Lab 01/10/25 03:28 Completed HCG Qualitative,Urine Stat Lab 01/10/25 03:53 Completed Troponin I Stat Lab 01/10/25 03:28 Completed Urinalysis Stat Lab 01/10/25 03:53 Completed Vital Signs Vital signs: Vital Signs Temperature 98.0 F 01/10/25 02:33 Pulse Rate 88 01/10/25 02:33 Respiratory Rate 18 01/10/25 02:33 Blood Pressure 122/87 H 01/10/25 02:33 Pulse Oximetry (%) 95 01/10/25 02:33 Oxygen Delivery Method Room Air 01/10/25 02:33 Chest Pain Patient data External records reviewed:: None Clinical information provided by:: patient and family Social determinants that could affect healthcare access:: none Patient has the following chronic illnesses:: Hypertension How is presenting disease/condition affected by chronic disease/condition?: uneffected by Evaluation data The following diagnostics were reviewed and interpreted by me:: lab results, radiology exam(s) and EKG tracing(s) Lab and/or radiology exams considered but not ordered:: none Interpretation Summary: CMP: Sodium within normal limits 141 no LILIAM negative troponin less than 0.[address] elevation, chest x-ray negative, ultrasound of upper extremity negative for DVTs. Hemoglobin stable 14 and hematocrit 42 Medications / Prescriptions Medications or Prescriptions considered but not ordered:: none Medication administrations:: none Consultations Consultation(s) initiated? (list below): No Diagnosis Chest Pain Differential Diagnosis: fracture of rib, pneumothorax, unstable angina pectoris, st elevation myocardial infarction and other (GERD ) Most likely diagnosis given after review of the tests above:: Patient has a past medical history of hypertension with labs within normal limits, negative troponin, NO ST elevation on EKG and unremarkable chest x-ray, chest pain likely secondary to GERD as patient did have a emeal prior to sleep. - The patient's plan was discussed with attending Dr. Rodriguez Butts MD PGY2 Internal Medicine Admission Indicated Admission indicated?: not indicated Admission Request Was there a request for admission?: No Disposition Plan Disposition Plan: Discharge Discharge Attestation Discharge Attestation: The patient and all family members were given an opportunity to ask questions and understood the discharge instructions. Discharge instructions specifically effects, indications for sooner follow up or return to the emergency department, and the expected course of current diagnosis. Patient condition: Stable Discharge Plan Plan Patient Disposition: HOME (Self Care) Patient condition on transfer: Stable Health Concerns: Instructions: -You have been seen in the ER for Acid Reflux and being sent home for with Famotidine 10 mg twice daily as needed -Please follow up with your primary care provider within one week of discharge -If your symptoms worsen,please seek immediate medical attention and return to your nearest emergency room -If you do not have a primary care provider, you may follow up at the [facility] at [address] [place] [address] [address], [place] [address], Prescriptions/Referrals Prescriptions/Med Rec: New famotidine 10 mg tablet 10 mg PO BID PRN (Reason: heartburn) 49 Days Qty: 98 0RF Rx Instructions: please take as needed for heart burn No Action ondansetron 4 mg tablet,disintegrating 4 mg PO Q6H PRN (Reason: nausea and vomiting) Qty: 10 0RF Referrals: Mac (PCP),MD Jerald [Primary Care Provider, Family Practice] - In 1 week Problem List Clinical Impression: Chest pain due to GERD Patient/Caregiver Discharge Instructions Education Materials: ED Chest Pain, Noncardiac, ED GERD (Adult) Print Language: [place] Stand Alone Forms: Maren Award Info., Patient Portal Info Letter
== END 2025-01-10 09:12 | disposition home or self-care (01) ==
PROVIDERS: Nurse Practitioner Family; Emergency Provider Emergency Medicine; PCP Family Medicine
DX: K21.9 Gastro-esophageal reflux disease without esophagitis (principal); R07.89 Other chest pain; M79.601 Pain in right arm; I10 Essential (primary) hypertension
CPT/HCPCS: 36415; 71045; 80053; 81001; 81025; 83880; 84484; 85025; 85379; 93005; 93971; 99283